=== PATIENT | female | born 1995 | race African-American/Black ===

== ENCOUNTER 2024-12-13 10:36 | Emergency (ER) | payer MEDICAID ==
[~2024-12-13] VITALS: Ht 165.1 cm; Wt 100.0 kg
[2024-12-13 10:46] VITALS: O2SAT 98
[2024-12-13 11:50] LABS: BASOPHILS % 0.8 % (0.0-2.0); EOSINOPHILS % 2.4 % (0.0-5.0); HEMATOCRIT. 38.7 % (36.0-48.0); HEMOGLOBIN. 12.9 g/dL (12.0-16.0); LYMPHOCYTES % 27.3 % (20.0-50.0); MEAN PLATELET VOLUME 7.4 fl (7.4-10.4); MONOCYTES % 5.2 % (2.0-8.0); NEUTROPHILS % 64.3 % (40.0-76.0); PLATELET 409 x1000/uL (130-400); RED BLOOD CELL COUNT 4.33 mill/uL (4.2-5.4); RED CELL DISTRIBUTION WIDTH 13.2 % (11.6-14.6)
[2024-12-13 11:54] LABS: CLARITY URINE CLOUDY (CLEAR); COLOR URINE RED (YELLOW); GLUCOSE URINE NEGATIVE (NEGATIVE); KETONES URINE NEGATIVE (NEGATIVE); LEUKOCYTE ESTERASE URINE 1+ (NEGATIVE); NITRITE URINE NEGATIVE (NEGATIVE); OCCULT BLOOD URINE 3+ (NEGATIVE); PH URINE 7.0 (4.5-8.0); PROTEIN URINE TRACE (NEGATIVE); SPECIFIC GRAVITY URINE 1.012 (1.005-1.030); UROBILINOGEN URINE 0.2 E.U./dL (0.2-1.0)
[2024-12-13 12:07] LABS: CREATININE 0.7 mg/dL (0.6-1.0); UREA NITROGEN BLOOD 8 mg/dL (9-23)
[2024-12-13 12:09] LABS: RBC URINE TNTC /hpf (0-2)
[2024-12-13 12:11] LABS: BACTERIA URINE NONE SEEN; SQUAMOUS EPITHELIAL CELL URINE 2+ /lpf (RARE/1+)
[2024-12-13 12:26] LABS: B-HCG QUANTITATIVE 3797 mIU/mL (<6)
[2024-12-13] MEDS ORDERED: CEPH500C2 MT (13:34)
[2024-12-13 14:02] VITALS: BP 141/91; PULSE 88; RESP 20; TEMP 36.8; O2SAT 98
== END 2024-12-13 14:28 | disposition home or self-care (01) ==
LOC: ER 10:36
DX: O20.9 Hemorrhage in early pregnancy, unspecified (principal); N89.8 Other specified noninflammatory disorders of vagina; Z3A.08 8 weeks gestation of pregnancy
CPT/HCPCS: 99284; 76801; 80048; 81003; 81025; 84702; 85025; 36415; 76817; A6449; 99291